=== PATIENT | male | born 2000 | race Caucasian/White ===

== ENCOUNTER 2020-09-11 12:48 | Outpatient (REF) | payer OTHER, SELFPAY | END 2020-09-11 12:49 | disposition home or self-care (01) | LOC: HO.LAB 12:48 | PROVIDERS: Visit Provider Internal Medicine | DX: Z20.828 Contact with and (suspected) exposure to other viral communicable diseases (principal) | CPT/HCPCS: C9803; U0003 ==

== ENCOUNTER 2020-09-23 12:08 | Emergency (ER) | payer OTHER, SELFPAY ==
[2020-09-23 13:27] VITALS: BP 138/94; PULSE 100; RESP 18; TEMP 37.2; O2SAT 96; BMI 31.8
[2020-09-23 14:33] LABS: Influenza A PCR NEGATIVE (Negative); Influenza B PCR NEGATIVE (Negative); Resp Syncy Virus RNA Qual PCR NEGATIVE (Negative); SARS COV2 PCR INHOUSE NEGATIVE (Negative)
--- NOTE | 2020-09-23 14:39 | ED.URI ---
HPI - URI/Sore Throat General Chief Complaint: Upper Respiratory Symptoms Stated Complaint: sore throat Time Seen by Provider: 09/23/20 13:39 Source: patient Mode of arrival: ambulatory Limitations: no limitations History of Present Illness HPI Narrative: 20 y/o male presenting with sore throat x2 days, runny nose and head congestion for the last week. He was tested for COVID on 09/13 and was negative. He describes his symptoms as mild but he was nervous and wanted to get evaluated again because the sore throat is new. No cough, fever, chills, N/V/ abd pain, SOB or chest pain. Related Data Allergies Allergy/AdvReac Type Severity Reaction Status Date / Time No Known Allergies Allergy Verified 09/23/20 13:25 Review of Systems Review of Systems: Constitutional: No Fever, No Chills ENT/Mouth: + sore throat, + Rhinorrhea, No Swallowing Difficulty Eyes: No Eye Pain, No Swelling, No Redness Cardiovascular: No Chest Pain, No SOB, No Orthopnea, No Edema Respiratory: No Cough, No Sputum, No Wheezing, No dyspnea Gastrointestinal: No Nausea, No Vomiting, No Diarrhea, No abdominal Pain Genitourinary: No Dysuria, No Urinary Frequency, No Hematuria Musculoskeletal: No joint pain, No Myalgias Skin: No Skin Lesions, No rash Neuro: No Weakness, No Numbness, No Dizziness, No Headache Psych: No Anxiety/Panic, No Depression Heme/Lymph: No Bruising, No Lymphadenopathy Endocrine: No Polyuria, No Polydipsia PMFSH Past Medical History Medical History (Updated 09/23/20 @ 14:43 by MATT Brooks) Healthy adult Social History Social History Advance Directives: No Advance Directives Information Provided: No Physical Exam Vital Signs: Vital Signs: Last Vital Signs Temp 99.0 F 09/23/20 13:27 Pulse 100 09/23/20 13:27 Resp 18 09/23/20 13:27 BP 138/94 H 09/23/20 13:27 Pulse Ox 96 09/23/20 13:27 Body Mass Index 31.8 Appearance: Alert. Oriented X3. No acute distress. Eyes: Pupils equal, round and reactive to light. ENT: Pharynx with tonsillar erythema and swelling, no notable exudates, uvula midline. Neck: Normal inspection. Neck supple. CVS: Normal heart rate and rhythm. Pulses normal. Respiratory: No respiratory distress. Breath sounds normal. Abdomen: Soft and nontender. +BS x4 Course Course Course Narrative: 20 y/o healthy male presenting with URI symptoms, recently COVID negative. Resp panel sent and negative. Strep test also negative. Likely viral etiology, likey adenovirus. Non-toxic and vitally stable. Pt counseled on management. Stable for d/c. MDM - URI/Sore Throat Lab Data Labs: Lab Results 09/23/20 Range/Units 13:44 Coronavirus (PCR) NEGATIVE (Negative) Influenza Type A (PCR) NEGATIVE (Negative) Influenza Type B (PCR) NEGATIVE (Negative) RSV RNA Qual (PCR) NEGATIVE (Negative) Discharge Plan Discharge Clinical Impression: Upper respiratory infection Qualifiers: URI type: unspecified URI Qualified Code(s): J06.9 - Acute upper respiratory infection, unspecified Patient Disposition: Home, Self-Care Instructions: Upper Respiratory Infection (ED) Additional Instructions: Your Strep test was negative. Your COVID, Influenza and RSV tests were also negative. Your vital signs are stable. Recommend using warm salt water gargles several times per day for sore throat. Use over the counter Cepacol lozenges or Chloraseptic spray for sore throat. Take cold/flu medications as needed for your other symptoms. Rest and stay hydrated. Follow up with your doctor next week. If you develop shortness of breath, difficulty breathing, chest pain or any other concerning symptom come back to the ER for further evaluation.
== END 2020-09-23 15:18 | disposition home or self-care (01) ==
PROVIDERS: Physician Assistant; Emergency Provider Internal Medicine
DX: J06.9 Acute upper respiratory infection, unspecified (principal); J02.8 Acute pharyngitis due to other specified organisms; Z20.828 Contact with and (suspected) exposure to other viral communicable diseases
CPT/HCPCS: 0241U; 87071; 87880; 99283

== ENCOUNTER 2021-08-08 07:43 | Outpatient (REF) | payer OTHER, SELFPAY ==
[2021-08-08 08:09] LABS: COVID-19 Test Negative (Negative)
== END 2021-08-08 07:44 | disposition home or self-care (01) ==
LOC: HO.LAB 07:43
PROVIDERS: PCP Internal Medicine; Visit Provider Internal Medicine
DX: Z20.822 Contact with and (suspected) exposure to COVID-19 (principal)
CPT/HCPCS: 36415; 87635; C9803

== ENCOUNTER 2021-10-09 12:40 | Outpatient (REF) | payer OTHER, SELFPAY ==
[2021-10-09 13:32] LABS: COVID-19 Test Negative (Negative)
== END 2021-10-09 12:41 | disposition home or self-care (01) ==
LOC: HO.LAB 12:40
PROVIDERS: Visit Provider Internal Medicine
DX: Z20.822 Contact with and (suspected) exposure to COVID-19 (principal)
CPT/HCPCS: 36415; 87635; C9803

== ENCOUNTER → 2021-12-11 15:49 | Outpatient (REF) | payer OTHER, SELFPAY | LOC: HO.SL 15:49 | PROVIDERS: PCP Internal Medicine; Visit Provider Internal Medicine | DX: R06.81 Apnea, not elsewhere classified (principal); E66.9 Obesity, unspecified | CPT/HCPCS: 95806 ==